=== PATIENT | male | born 1995 | race Caucasian/White ===

== ENCOUNTER 2019-06-08 16:26 | Emergency (ER) | payer SELFPAY ==
[~2019-06-08] VITALS: Ht 187.9 cm; Wt 60.4 kg
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
[2019-06-08] MEDS ORDERED: GABA-488 PO (17:01)
[2019-06-08] MEDS ORDERED: PRD20T PO (17:01)
[2019-06-08 17:09] VITALS: BP 123/60
--- OUTSIDE RECORDS SUMMARY | 2019-06-08 17:18 | XMS REPORT | Continuity of Care Document ---
Author Organization Unknown Address Unknown Phone Unavailable Allergies There is no data. Medications There is no data. Problems There is no data. Procedures There is no data. Results There is no data. Encounters ACCT No. Visit Date/Time Discharge Status Pt. Type Provider Facility Loc./Unit Complaint [id number] 06/08/2019 16:28:00 020 17:09:00 DIS Emergency JOSE JAUREGUI DO [facility] ER FS LEG PAIN
== END 2019-06-08 17:09 | disposition home or self-care (01) ==
LOC: ER FS 16:28
DX: M79.605 Pain in left leg (principal); F17.210 Nicotine dependence, cigarettes, uncomplicated
CPT/HCPCS: 99283